=== PATIENT | male | born 1980 | race Hispanic/Latino ===

== ENCOUNTER 2024-04-15 14:01 | Day surgery (SDC) | payer OTHER, SELFPAY ==
--- NOTE | 2024-04-15 | PATH_ITS ---
[facility] Accession Number: [id number] No. of containers..02 Tissue . 01 Material submitted: . PART A: gastrointestinal site - GASTRIC BIOPSIES PART B: colon - CECAL BIOPSY . 01 Clinical history: . R/O H.PYLORI . 01 Diagnosis: Part A: GASTRIC BIOPSIES: Gastric mucosa with mild chronic inflammation. No Helicobacter organisms identified. No intestinal metaplasia, dysplasia, or malignancy identified. . Part B: CECAL BIOPSY: Tubular adenoma. STO 04/20/2024 1150 Local . 01 Electronically signed: . Francisco Sage MD, Pathologist NPI- [id number] . 01 Gross description: . Part A: GASTRIC BIOPSIES: Received in formalin are 4 fragment(s) of katz, soft tissue measuring 0.1 x 0.1 x 0.1 cm to 0.3 x 0.3 x 0.3 cm submitted entirely in 1 cassette(s) . Part B: CECAL BIOPSY: Received in formalin are 2 fragment(s) of katz, soft tissue measuring 0.2 x 0.2 x 0.2 cm to 0.3 x 0.3 x 0.2 cm submitted entirely in 1 cassette(s) /SLY 04/20/2024 1150 Local . 01 Microscopic: . Part A: GASTRIC BIOPSIES: An immunohistochemical stain was performed to evaluate for Helicobacter organisms and is negative. The control stains appropriately. * This test was developed and the performance characteristics were validated by [facility]. It has not been cleared or approved by the Food and Drug Administration. . 01 Pathologist provided ICD-10: D12.0, K29.50 . 01 CPT . 388710, 498389 Specimen Comment: A courtesy copy of this report has been sent to [phone] Performed at: [address], [place], [place] [id number] MD Francisco Sage MD Phone: [phone]
--- NOTE | 2024-04-15 14:28 | PM.PREOP ---
Pre-operative Note Interval Note History & Physical reviewed/Exam performed by Physician: Yes Changes to H&P: No
--- NOTE | 2024-04-15 14:28 | PM.OP.EC ---
Operative Date/Time/Diagnoses Date of procedure: 04/15/24 Time of procedure: 14:28 Pre-op diagnosis: Abdominal pain Procedure & Clinicians Study performed: Esophagogastroduodenoscopy and colonoscopy Same procedure as scheduled: Yes Indications: Abdominal pain Surgeon: Christian De Luna Procedure Notes Procedure in detail: The history and physical was performed/updated and the patient is ASA class is 2. The procedure was discussed in detail with the patient. Potential risks complications including infection, bleeding, missed diagnosis, perforation, need for surgery, and were explained. Their questions were answered and informed consent was obtained. Patient placed in left lateral decubitus position. Time out was performed. Procedural sedation was administered by Anesthesia. A bite block was placed. the scope was inserted into the mouth and advanced through the esophagus and into the stomach. the pylorus was intubated and the duodenum was examined to the 2nd portion.. The scope was retroflexed within the stomach. The stomach was then decompressed and scope pulled back to the GE junction. The scope was then removed Examination began with a thorough inspection of the perianal area there was no evidence of fissures, fistulae, external hemorrhoids or cutaneous malignancy. The colonoscopy scope was then placed into the anal canal and was advanced to the cecum, which was identified by the ileocecal valve, the appendiceal orifice and the confluence of the taenia. The scope was then slowly withdrawn examining colon thoroughly in all directions, irrigating it of any residual stool. FINDINGS Diffuse gastrititis without ulcer. Random stomach biopsies taken with forceps Cecal polyp 5 mm removed with forceps The patient tolerated the procedure well. They will be discharged once criteria are met. The prep was of good/excellent quality. The withdrawl time was 7 minutes. Specimen(s): other (gastric, cecal polyp) Impression: gastritis colonic polyp x 1 Post-procedure Plan for aftercare: Follow-up is dependent on pathology findings Start Omeprazole as written Disposition: same day surgery
[2024-04-15] MEDS: LACTATED RINGERS 1,000 ML 42 ML IV (14:30)
[2024-04-15 14:33] VITALS: BP 122/79; PULSE 99; RESP 18; TEMP 36.6; O2SAT 97
[2024-04-15 15:26] VITALS: BP 120/78; PULSE 100; RESP 163; O2SAT 98
[2024-04-15 15:30] VITALS: BP 127/77; PULSE 95; RESP 16; O2SAT 98
[2024-04-15 15:32] VITALS: BP 127/74; PULSE 99; RESP 17; TEMP 36.2; O2SAT 99
[2024-04-15 15:46] VITALS: BP 124/90; PULSE 104; RESP 16; TEMP 36.1; O2SAT 97
== END 2024-04-15 15:59 | disposition home or self-care (01) ==
PROVIDERS: Referring Provider Surgery; Visit Provider Surgery
PROC: 0DJ08ZZ Inspection of Upper Intestinal Tract, Via Natural or Artificial Opening Endoscopic (ICD-10-PCS; CPT 45380; principal; 2024-04-15 15:00)
PROC: 0DJD8ZZ Inspection of Lower Intestinal Tract, Via Natural or Artificial Opening Endoscopic (ICD-10-PCS; CPT 45378; 2024-04-15 15:00)
DX: K29.50 Unspecified chronic gastritis without bleeding (principal); D12.0 Benign neoplasm of cecum
CPT/HCPCS: 45380; 43239; J2704